=== PATIENT | male | born 2000 | race Caucasian/White ===

== ENCOUNTER 2018-01-25 18:59 | Emergency (ER) | payer MEDICAID ==
[~2018-01-25] VITALS: Ht 162.6 cm; Wt 61.4 kg
[2018-01-25 19:16] VITALS: Ht 162.6 cm; Wt 61.4 kg
[2018-01-25] MEDS ORDERED: ZANAFLEX4 MG PO (20:39)
[2018-01-25] MEDS ORDERED: TORADOL10 MG PO (20:39)
[2018-01-25 21:13] VITALS: BP 127/68
== END 2018-01-25 21:13 | disposition home or self-care (01) ==
LOC: D.ER 18:59
DX: S22.089A Unspecified fracture of T11-T12 vertebra, initial encounter for closed fracture (principal); X58.XXXA Exposure to other specified factors, initial encounter; Y93.89 Activity, other specified; Y92.89 Other specified places as the place of occurrence of the external cause; S32.019A Unspecified fracture of first lumbar vertebra, initial encounter for closed fracture; F17.200 Nicotine dependence, unspecified, uncomplicated

== ENCOUNTER 2019-09-08 21:29 | Emergency (ER) | payer OTHER ==
[~2019-09-08] VITALS: Ht 162.6 cm; Wt 84.1 kg
[~2019-09-08 21:29] MED LIST: TORADOL10 MG PO; ZANAFLEX4 MG PO
[2019-09-08 21:36] VITALS: Ht 162.6 cm; Wt 84.1 kg
[2019-09-09] MEDS ORDERED: ULTRAM50 MG PO (00:05)
[2019-09-09 00:27] VITALS: BP 134/76
== END 2019-09-09 00:27 | disposition home or self-care (01) ==
LOC: D.ER 21:29
DX: F07.81 Postconcussional syndrome (principal); R51 Headache; V89.2XXA Person injured in unspecified motor-vehicle accident, traffic, initial encounter; Y93.9 Activity, unspecified; Y92.9 Unspecified place or not applicable